=== PATIENT | female | born 1945 | race Caucasian/White ===

== ENCOUNTER → 2017-04-28 | Day surgery (SDC) | payer MEDICARE ==
[~2017-04-28] MED LIST: AMLODIPINE-BEN1 EAC3 PO; BABY ASPIRIN PO; CALCIUM 250+D1 EACH PO; CELECOXIB200 MG PO; CENTRUM SILVER PO; CRESTOR PO; CRESTOR40 MG PO; HYDROCHLOROTH12.5 M1 PO; NABUMETONE PO; NORVASC PO; PRILOSEC PO
--- NOTE | ~2017-04-28 | OR ---
Unit #: [id number] #: [id number] Patient: DAT GODDARD V [id number] [address] [id number] [id number] O MR#: [id number] NAME: DAT GODDARD V. ROOM: Date of Procedure: 04/28/2017 Admission Date: 04/28/2017 Surgeon: Frankie Del Cid M.D. : 1945 Attending Physician: Frankie Del Cid M.D. Primary Care Physician: Dre Luis M.D. OPERATIVE REPORT PREOPERATIVE DIAGNOSIS Colorectal cancer screening. PROCEDURES PERFORMED Colonoscopy and polypectomy. POSTOPERATIVE DIAGNOSES 1. Single sessile polyp in the proximal transverse colon, removed using snare polypectomy. This was about 7 to 8 mm in size and was removed and retrieved and sent for histology. 2. The patient had localized severe sigmoid diverticulosis. 3. Rest of the examination up to cecum and terminal ileum was normal. The quality of the prep was excellent. RECOMMENDATIONS Follow up results of polyp histology and if an adenoma, consider repeat examination in 5 years. SEDATION USED MAC. DESCRIPTION OF PROCEDURE Following detailed explanation of the potential risks and complications of a colonoscopy, namely perforation, bleeding, and complications related to sedation, the patient was brought to GI lab and laid in the left lateral decubitus position. A digital rectal examination was performed, which was normal. Lubricated tip of the Olympus video colonoscope was inserted through the anus and advanced under direct vision. The scope was advanced, past rectosigmoid into descending colon. Extreme caution was used in navigating the sigmoid, which had very tight severe diverticular disease. Once the scope was advanced in descending colon, proximal insertion was easier. The scope tip was then navigated all the way up to cecum with visualization of ileocecal valve and the appendiceal orifice. Last few inches of the terminal ileum also were visualized after intubation of the ileocecal valve and appeared normal. Successive segments of the colonic mucosa were examined upon withdrawal. A single sessile polyp was noted in the proximal transverse colon. This was about 7 mm in size. It was removed using snare polypectomy. The polyp was retrieved and sent for histology. No additional polyps noted. Photodocumentation was obtained. Other than the severe localized sigmoid diverticulosis, no additional abnormalities noted. The patient did not have any hemorrhoids at the anal verge. The scope was then withdrawn. Unit #: [id number] #: [id number] Patient: DAT GODDARD V The patient returned to the recovery area. She tolerated the procedure without any postprocedure complications. Dictated by... Jose Raul Crystal/nellie TD: 04/28/2017 16:37 JOB #: [id number] CC: Dre Luis M.D. OPERATIVE REPORT Page 1 of 1 X Frankie Del Cid MD X PROCEDURE OPERATIVE NOTE
== END | disposition home or self-care (01) ==
LOC: COPS 09:01
DX: Z12.11 Encounter for screening for malignant neoplasm of colon (principal); K63.5 Polyp of colon; K57.30 Diverticulosis of large intestine without perforation or abscess without bleeding; I10 Essential (primary) hypertension; E78.5 Hyperlipidemia, unspecified; K21.9 Gastro-esophageal reflux disease without esophagitis; M19.90 Unspecified osteoarthritis, unspecified site; F17.210 Nicotine dependence, cigarettes, uncomplicated; Z79.899 Other long term (current) drug therapy; Z90.710 Acquired absence of both cervix and uterus
CPT/HCPCS: 88305; J2250